=== PATIENT | female | born 1980 | race Caucasian/White ===

== ENCOUNTER 2017-12-22 13:09 | Emergency (ER) | payer BC ==
[2017-12-22 16:50] LABS: Hematocrit 39 % (35-47); Hemoglobin 13.2 g/dl (12.0-16.0); Mean Corpuscular HGB Conc 34 g/dl (31-36); Mean Corpuscular Hemoglobin 29 pg (27-31); Mean Corpuscular Volume 86 fL (80-97); Mean Platelet Volume 9.5 um3 (7.4-10.4); Platelet Count 273 10^3/ul (150-450); Red Blood Count 4.53 10^6/ul (4.00-5.40); Red Cell Distribution Width 13 % (10.5-15); White Blood Count 9.1 10^3/ul (3.5-10.8)
--- NOTE | 2017-12-22 17:04 | ED ---
Abdominal Pain/Female - HPI Summary H[facility]: [facility]. Pt is a 37 y/o F c/o abdominal pain and heavy vaginal bleeding onset last night. Assoc Sx: fever (99.8). Denies: Cough, N/V/D. Alleviating factors: motrin. Took motrin this date ~1200. (, P:1, A:0). - History of Current Complaint Chief Complaint: EDOBProblems Stated Complaint: 7 WKS PREG/ABD PAIN/VAGINAL BLEEDING Time Seen by Provider: 12/22/17 16:24 Hx Obtained From: Patient Hx Last Menstrual Period: currently ?: Yes Onset/Duration: Sudden Onset, Lasting Days, Still Present Timing: Constant Severity Currently: None Pain Intensity: 0 Pain Scale Used: 0-10 Numeric Location: Suprapubic Character: Other: - excruciating Alleviating Factor(s): OTC Analgesics Associated Signs and Symptoms: Positive: Fever. Negative: Cough, Nausea, Vomiting, Diarrhea Allergies/Adverse Reactions: Allergies Allergy/AdvReac Type Severity Reaction Status Date / Time codeine Allergy See Comment Verified 12/22/17 16:52 Penicillins Allergy Difficulty Verified 12/22/17 16:52 Breathing/Wheezing tetracycline Allergy Difficulty Verified 12/22/17 16:52 Breathing/Wheezing Home Medications: Home Medications Rutin/Hesp/Bioflav/C/[id number] [Bioflex Tablet] 500 mg PO DAILY 12/22/17 [ History Confirmed 12/22/17] PMH/Surg Hx/FS Hx/Imm Hx Infectious Disease History: No Infectious Disease History: Reports: Hx Shingles - July 2012 Denies: Traveled Outside the [place] in Last 30 Days - Family History Known Family History: Positive: Diabetes Negative: Cardiac Disease, Hypertension - Social History Occupation: Employed Full-time Lives: With Family Alcohol Use: Occasionally Substance Use Type: Reports: None Smoking Status (MU): Never Smoked Tobacco Review of Systems Positive: Fever - 99.8 Negative: Cough Positive: Abdominal Pain - suprapubic. Negative: Vomiting, Diarrhea, Nausea Positive: hematuria All Other Systems Reviewed And Are Negative: Yes Physical Exam - Summary Physical Exam Summary: Constitutional: Well-developed, Well-nourished, Alert. (-) Distressed Skin: Warm, Dry HENT: Normocephalic; Atraumatic Eyes: Conjunctiva normal Neck: Musculoskeletal ROM normal neck. (-) JVD, (-) Stridor, (-) Tracheal deviation Cardio: Rhythm regular, rate normal, Heart sounds normal; Intact distal pulses; The pedal pulses are 2+ and symmetric. Radial pulses are 2+ and symmetric. (-) Murmur Pulmonary/Chest wall: Effort normal. (-) Respiratory distress, (-) Wheezes, (-) Rales Abd: Mild lower abd tenderness, (-) Distension, (-) Guarding, (-) Rebound Musculoskeletal: (-) Edema Lymph: (-) Cervical adenopathy Neuro: Alert, Oriented x3 Psych: Mood and affect Normal Triage Information Reviewed: Yes Vital Signs On Initial Exam: Initial Vitals Temp Pulse Resp BP Pulse Ox 97.7 F 62 16 111/59 98 12/22/17 13:14 12/22/17 13:14 12/22/17 13:14 12/22/17 13:14 12/22/17 13:14 Vital Signs Reviewed: Yes Diagnostics - Vital Signs Vital Signs Temp Pulse Resp BP Pulse Ox 12/22/17 16:48 56 116/53 98 12/22/17 16:47 56 98 12/22/17 15:34 98.6 F 68 18 116/55 100 12/22/17 13:14 97.7 F 62 16 111/59 98 - Laboratory Lab Results: Lab Results 12/22/17 Range/Units 16:36 WBC 9.1 (3.5-10.8) 10^3/ul RBC 4.53 (4.00-5.40) 10^6/ul Hgb 13.2 (12.0-16.0) g/dl Hct 39 (35-47) % MCV 86 (80-97) fL MCH 29 (27-31) pg MCHC 34 (31-36) g/dl RDW 13 (10.5-15) % Plt Count 273 (150-450) 10^3/ul MPV 9.5 (7.4-10.4) um3 Result Diagrams: 12/22/17 16:36 12/22/17 16:36 Lab Statement: Any lab studies that have been ordered have been reviewed, and results considered in the medical decision making process. Abdominal Pain Fem Course/Dx - Diagnoses Provider Diagnoses: Miscarriage Discharge - Sign-Out/Discharge Documenting (check all that apply): Sign-Out Patient Signing out patient TO: Kristy Liriano Receiving patient FROM: Sanjiv Colindres - Discharge Plan Condition: Stable Disposition: HOME Referrals: Roxana Hall MD [Medical Doctor] - 1 Day Care [facility] [Outside] - 1 Day - Billing Disposition and Condition Condition: STABLE Disposition: Home
[2017-12-22 17:11] LABS: EGFR Non-African American 114.1 (>60)
--- NOTE | 2017-12-22 18:55 | RAD ---
INDICATION: , vaginal bleeding. COMPARISON: There are no prior studies available for comparison. TECHNIQUE: Multiple real-time transvaginal images of the pelvis were obtained. FINDINGS: There is a small irregular sac like structure present within the endometrial cavity. No yolk sac, pole or heartbeat is visualized. The mean sac diameter measures 0.7 cm which would correspond to an estimated gestational age is 5 weeks 2 days. The right ovary measured 3.1 x 1.9 x 1.8 cm. The left ovary measured 4.2 x 2.3 x 2.9 cm. There is vascular flow within both ovaries. There is a 1.7 x 1.6 x 1.2 cm simple cyst within the left ovary. No free intraperitoneal fluid is seen. IMPRESSION: THERE IS A SMALL IRREGULAR SAC LIKE STRUCTURE PRESENT WITHIN THE ENDOMETRIAL CAVITY. DIFFERENTIAL DIAGNOSIS WOULD INCLUDE INCOMPLETE SPONTANEOUS MISCARRIAGE OR LESS LIKELY AN EARLY VIABLE INTRAUTERINE . THE POSSIBILITY OF AN ECTOPIC CANNOT BE EXCLUDED. RECOMMEND CORRELATION WITH QUANTITATIVE BETA-HCG AND FOLLOW-UP TRANSVAGINAL PELVIC ULTRASOUND STUDIES NEEDED.
[2017-12-22 19:19] VITALS: BP 105/73
== END 2017-12-22 19:18 | disposition home or self-care (01) ==
LOC: ED 13:09
DX: O03.9 Complete or unspecified spontaneous abortion without complication (principal); R50.9 Fever, unspecified; Z88.1 Allergy status to other antibiotic agents; Z88.5 Allergy status to narcotic agent; Z88.0 Allergy status to penicillin; Z83.3 Family history of diabetes mellitus
CPT/HCPCS: 36415; 76817; 80053; 84702; 85027; 86850; 86900; 86901; 99282